=== PATIENT | female | born 1990 | race Caucasian/White ===

== ENCOUNTER 2016-11-06 21:46 | Emergency (ER) | payer OTHER ==
--- NOTE | 2016-11-06 22:18 | ER Document Report ---
ED GI/ - General Chief Complaint: Vag Bleeding, +preg <12wks Stated Complaint: VAGINAL BLEEDING Time Seen by Provider: 11/06/16 22:10 Notes: Patient is a 26-year-old female, at 6 weeks gestation by last menstrual period, that comes emergency department for chief complaint of vaginal bleeding and lower abdominal cramping that started this afternoon. She states she has passed a few clots. She denies vaginal discharge, dysuria, fever, vomiting, or current pain. She denies trauma. TRAVEL OUTSIDE OF THE [place] IN LAST 30 DAYS: No - Related Data Allergies/Adverse Reactions: No Known Allergies Allergy (Verified 03/21/13 19:14) Past Medical History - General Information source: Patient - Social History Smoking Status: Never Smoker Frequency of alcohol use: None Drug Abuse: None Lives with: Family Family History: Reviewed & Not Pertinent Patient has suicidal ideation: No Patient has homicidal ideation: No - Medical History Medical History: Negative Renal/ Medical History: Denies: Hx Peritoneal Dialysis Past Surgical History: Reports: Hx Oral Surgery - Immunizations Hx Diphtheria, Pertussis, Tetanus Vaccination: Yes - 2 years ago Review of Systems - Review of Systems Constitutional: No symptoms reported EENT: No symptoms reported Cardiovascular: No symptoms reported Respiratory: No symptoms reported Gastrointestinal: See HPI Genitourinary: See HPI Female Genitourinary: See HPI Musculoskeletal: No symptoms reported Skin: No symptoms reported Hematologic/Lymphatic: No symptoms reported Neurological/Psychological: No symptoms reported Physical Exam - Vital signs Vitals: Temp Pulse Resp BP Pulse Ox 97.7 F 89 20 144/88 H 100 11/06/16 21:50 11/06/16 21:50 11/06/16 21:50 11/06/16 21:50 11/06/16 21:50 Interpretation: Normal - General General appearance: Appears well, Alert In distress: None - HEENT Head: Normocephalic, Atraumatic Eyes: Normal Pupils: PERRL - Respiratory Respiratory status: No respiratory distress Chest status: Nontender Breath sounds: Normal Chest palpation: Normal - Cardiovascular Rhythm: Regular Heart sounds: Normal auscultation Murmur: No - Abdominal Inspection: Normal Distension: No distension Bowel sounds: Normal Tenderness: Nontender. No: Tender, Guarding Organomegaly: No organomegaly - Back Back: Normal, Nontender. No: Tender, CVA tenderness - Extremities General upper extremity: Normal inspection, Nontender, Normal color, Normal ROM , Normal temperature General lower extremity: Normal inspection, Nontender, Normal color, Normal ROM , Normal temperature, Normal weight bearing. No: J Carlos's sign - Neurological Neuro grossly intact: Yes Cognition: Normal Orientation: AAOx4 Nick Coma Scale Eye Opening: Spontaneous [place] Coma Scale Verbal: Oriented Nick Coma Scale Motor: Obeys Commands [place] Coma Scale Total: 15 Speech: Normal Motor strength normal: LUE, RUE, LLE, RLE Sensory: Normal - Psychological Associated symptoms: Normal affect, Normal mood - Skin Skin Temperature: Warm Skin Moisture: Dry Skin Color: Normal Course - Re-evaluation Re-evalutation: Patient well appearing, has a soft unremarkable abdomen, no CVA tenderness. No fever or tachycardia. Non-specific leukocytosis. Patient already aware of microcytic anemia. Chemistry unremarkable. Ultrasound shows no IUP, no abnormalities. HCG resulted as early or low. Urine contaminated, but with early after discussion with patient she will be covered for this. Discussed results and recommendations in details with patient. She has OBGYN she plans to follow up with closely reportedly. Discussed return precautions, patient states understanding and agreement. - Vital Signs Vital signs: Temp Pulse Resp BP Pulse Ox 98.2 F 89 17 113/76 98 11/07/16 01:14 11/07/16 01:14 11/07/16 01:14 11/07/16 01:14 11/07/16 01:14 - Laboratory Result Diagrams: 11/06/16 21:57 11/06/16 21:57 Laboratory results interpreted by me: 11/06/16 11/06/16 11/06/16 21:57 21:57 21:57 WBC 14.6 H Hgb 10.9 L Hct 34.9 L MCV 76 L MCH 23.7 L MCHC 31.1 L RDW 18.3 H Eosinophils % 6.6 H Absolute Neutrophils 9.1 H Absolute Eosinophils 1.0 H Beta HCG, Quant 124.54 H Urine Protein 30 H Urine Blood LARGE H Ur Leukocyte Esterase MODERATE H Discharge - Discharge Clinical Impression: Vaginal bleeding in patient at less than 20 weeks gestation Condition: Stable Disposition: HOME, SELF-CARE Additional Instructions: The ultrasound does not show any abnormalities, although does not show a yet, it is too early. It is unclear at this time if you are having an early with bleeding, a miscarriage, or other abnormality. This needs to be followed closely, I recommend a repeat beta hCG in 48-72 hours to help assess the situation. Take keflex antibiotic due to white blood cells in the urine and possible UTI. Return to emergency department for any concerning or worsening symptoms including heavy bleeding with severe pain, dizziness, or any other concerning symptoms. Prescriptions: Cephalexin Monohydrate [Keflex 500 mg Capsule] 500 mg PO BID #10 capsule Referrals: DUY MULLEN MD [Primary Care Provider] - Follow up as needed
[2016-11-06 22:21] LABS: ABSOLUTE BASOPHILS # (AUTO) 0.1 10^3/uL (0.0-0.2); ABSOLUTE LYMPHOCYTES (AUTO) 3.3 10^3/uL (0.5-4.7); ABSOLUTE MONOCYTES (AUTO) 1.1 10^3/uL (0.1-1.4); ABSOLUTE NEUT (AUTO) 9.1 10^3/uL (1.7-8.2); BASOPHILS % (AUTO) 0.8 % (0-2); EOSINOPHILS % (AUTO) 6.6 % (0-6); HEMATOCRIT 34.9 % (36.0-47.0); HEMOGLOBIN 10.9 g/dL (12.0-15.5); HGB HCT DIFFERENCE -2.2; LYMPHOCYTES % (AUTO) 22.7 % (13-45); MEAN CORPUSCULAR HEMOGLOBIN 23.7 pg (27.0-33.4); MEAN CORPUSCULAR HGB CONC 31.1 g/dL (32.0-36.0); MEAN CORPUSCULAR VOLUME 76 fl (80-97); MONOCYTES % (AUTO) 7.6 % (3-13); RED CELL DISTRIBUTION WIDTH 18.3 % (11.5-14.0); SEGMENTED NEUTROPHILS % (AUTO) 62.3 % (42-78); WHITE BLOOD COUNT 14.6 10^3/uL (4.0-10.5)
[2016-11-06 22:25] LABS: ALANINE AMINOTRANSFERASE 38 U/L (9-52); ALBUMIN 4.1 g/dL (3.5-5.0); ALKALINE PHOSPHATASE 100 U/L (38-126); ANION GAP 10 (5-19); ASPARTATE AMINO TRANSFERASE 26 U/L (14-36); BILIRUBIN,DIRECT 0.3 mg/dL (0.0-0.4); BILIRUBIN,TOTAL 0.4 mg/dL (0.2-1.3); BLOOD UREA NITROGEN 8 mg/dL (7-20); CALCIUM 9.3 mg/dL (8.4-10.2); CARBON DIOXIDE 26 mmol/L (22-30); CHLORIDE 104 mmol/L (98-107); GLUCOSE 98 mg/dL (75-110); POTASSIUM 4.3 mmol/L (3.6-5.0); SODIUM 140.1 mmol/L (137-145); TOTAL PROTEIN 7.6 g/dL (6.3-8.2)
[2016-11-06 22:29] LABS: BILIRUBIN,URINE NEGATIVE (NEGATIVE); GLUCOSE, URINE NEGATIVE (NEGATIVE); KETONES,URINE NEGATIVE (NEGATIVE); LEUKOCYTE ESTERASE,URINE MODERATE (NEGATIVE); NITRITE,URINE NEGATIVE (NEGATIVE); PROTEIN,URINE 30 mg/dL (NEGATIVE); URINE SPECIFIC GRAVITY 1.018; UROBILINOGEN,URINE NEGATIVE mg/dL (<2.0)
[2016-11-06 22:30] LABS: APPEARANCE,URINE SLIGHTLY-CLOUDY
--- NOTE | 2016-11-06 23:29 | RADIOLOGY REPORT (SQ) ---
EXAM DESCRIPTION: U/S OB TRANSVAG W/DOPPLER COMPLETED DATE/TIME: 11/06/2016 11:20 pm REASON FOR STUDY: +HCG, bleeding, cramping COMPARISON: None. TECHNIQUE: Transvaginal static and realtime grayscale images acquired of the pelvis. Additional keith cted spectral and color Doppler images recorded. All images stored on PACs. BHC LIMITATIONS: None. FINDINGS: UTERUS: No visualized intrauterine . RIGHT ADNEXA: Normal ovary with normal vascular flow. No adnexal free fluid. No adnexal masses. LEFT ADNEXA: Normal ovary with normal vascular flow. No adnexal free fluid. No adnexal masses. FREE FLUID: None. OTHER: No other significant finding. IMPRESSION: NO VISUALIZED INTRA- OR EXTRAUTERINE . bHCG LEVEL TOO LOW TO EXPECT VISUALIZATION OF . ECTOPIC CANNOT BE EXCLUDED. FOLLOW-UP ULTRASOUND AND SERIAL BHCG LEVELS STRONGLY RECOMMENDED TO ACCURATELY ASSESS STATU S. TECHNICAL DOCUMENTATION: JOB ID: [id number] [employer]- All Rights Reserved
[2016-11-07] MEDS ORDERED: CEPHALEXIN 500 MG CAPSULE PO ONE (00:52)
[2016-11-07 01:15] VITALS: BP 113/76
== END 2016-11-07 01:10 | disposition home or self-care (01) ==
LOC: ER 21:46
DX: O20.9 Hemorrhage in early pregnancy, unspecified (principal); O26.891 Other specified pregnancy related conditions, first trimester; R10.30 Lower abdominal pain, unspecified; O99.011 Anemia complicating pregnancy, first trimester; D50.9 Iron deficiency anemia, unspecified; O99.111 Other diseases of the blood and blood-forming organs and certain disorders involving the immune mechanism complicating pregnancy, first trimester; D72.829 Elevated white blood cell count, unspecified; Z3A.01 Less than 8 weeks gestation of pregnancy
CPT/HCPCS: 36415; 76817; 80053; 81001; 84702; 85025; 86900; 86901; 93976; 99284

== ENCOUNTER 2018-10-18 00:02 | Day surgery (SDC) | payer OTHER ==
[2018-10-18] MEDS ORDERED: ONDANSETRON HCL INJ/PF 4 MG/2 ML SDV IV ONE (00:25)
[2018-10-18] MEDS ORDERED: NORMAL SALINE 1000 ML 1,000 ML IV ONE ×2 (00:25→02:56)
--- NOTE | 2018-10-18 00:26 | ER Document Report ---
ED Medical Screen (RME) - General Chief Complaint: Upper Abdominal Pain Stated Complaint: CHEST PAIN,SHORTNESS OF BREATH Time Seen by Provider: 10/18/18 00:24 Primary Care Provider: DUY MULLEN MD [Primary Care Provider] - Follow up as needed Notes: Patient is a 20-year-old female presents to the emergency department generalized epigastric and right upper quadrant pain. Patient states she is also had multi ple episodes of vomiting. Patient's denying any blood in her emesis. Patient's denying any diarrhea, fevers, dysuria, vaginal discharge. Patient states she had the same pain when she was . States she was told it may be her gallbladder but unfortunately "there was nothing they could do because I was ." Past medical history: None Medications: None Allergies: None Patient states she just finished her last menstrual cycle yesterday. ABDOMEN: Soft, generalized right upper quadrant and epigastric abdominal pain. Non-distended. Bowel sounds present in all 4 quadrants. I have greeted and performed a rapid initial assessment of this patient. A comprehensive ED assessment and evaluation of the patient, analysis of test results and completion of the medical decision making process will be conducted by additional ED providers. I have specifically instructed the patient or family members with the patient to immediately return to any nursing staff should anything change in the patient's condition or with their chief complaint. This medical record was dictated with voice recognizing software. There may be grammatical, syntax errors that are unintended. TRAVEL OUTSIDE OF THE [place] IN LAST 30 DAYS: No - Related Data Allergies/Adverse Reactions: No Known Allergies Allergy (Verified 03/21/13 19:14) Past Medical History Renal/ Medical History: Denies: Hx Peritoneal Dialysis Past Surgical History: Reports: Hx Oral Surgery - Immunizations Hx Diphtheria, Pertussis, Tetanus Vaccination: Yes - 2 years ago Physical Exam - Vital signs Vitals: Temp Pulse Resp BP Pulse Ox 97.6 F 81 18 115/79 96 10/18/18 00:17 10/18/18 00:17 10/18/18 00:17 10/18/18 00:17 10/18/18 00:17 Course - Vital Signs Vital signs: Temp Pulse Resp BP Pulse Ox 97.6 F 81 18 115/79 96 10/18/18 00:17 10/18/18 00:17 10/18/18 00:17 10/18/18 00:17 10/18/18 00:17 Doctor's Discharge - Discharge Referrals: DUY MULLEN MD [Primary Care Provider] - Follow up as needed
[2018-10-18 00:57] LABS: APPEARANCE,URINE SLIGHTLY-CLOUDY; BILIRUBIN,URINE NEGATIVE (NEGATIVE); COLOR,URINE YELLOW; GLUCOSE, URINE NEGATIVE (NEGATIVE); KETONES,URINE NEGATIVE (NEGATIVE); LEUKOCYTE ESTERASE,URINE TRACE (NEGATIVE); NITRITE,URINE NEGATIVE (NEGATIVE); PROTEIN,URINE NEGATIVE (NEGATIVE); URINE SPECIFIC GRAVITY 1.024
[2018-10-18] MEDS ORDERED: HYDROMORPHONE HCL INJ/PF 2 MG/ML AMPULE IV ONE ×2 (00:57→02:55)
[2018-10-18 01:19] LABS: ABSOLUTE BASOPHILS # (AUTO) 0.1 10^3/uL (0.0-0.2); ABSOLUTE EOSINOPHILS # (AUTO) 0.7 10^3/uL (0.0-0.6); ABSOLUTE LYMPHOCYTES (AUTO) 2.2 10^3/uL (0.5-4.7); ABSOLUTE MONOCYTES (AUTO) 0.9 10^3/uL (0.1-1.4); ABSOLUTE NEUT (AUTO) 13.9 10^3/uL (1.7-8.2); BASOPHILS % (AUTO) 0.3 % (0-2); HEMATOCRIT 42.6 % (36.0-47.0); HEMOGLOBIN 14.6 g/dL (12.0-15.5); LYMPHOCYTES % (AUTO) 12.4 % (13-45); MEAN CORPUSCULAR HEMOGLOBIN 30.2 pg (27.0-33.4); MEAN CORPUSCULAR HGB CONC 34.2 g/dL (32.0-36.0); MEAN CORPUSCULAR VOLUME 88 fl (80-97); MONOCYTES % (AUTO) 5.2 % (3-13); PLATELET COUNT 277 10^3/uL (150-450); RED BLOOD COUNT 4.83 10^6/uL (3.72-5.28); RED CELL DISTRIBUTION WIDTH 14.9 % (11.5-14.0); SEGMENTED NEUTROPHILS % (AUTO) 78.1 % (42-78); TOTAL CELLS COUNTED % (AUTO) 100 %; WHITE BLOOD COUNT 17.8 10^3/uL (4.0-10.5)
[2018-10-18 01:40] LABS: ALANINE AMINOTRANSFERASE 48 U/L (9-52); ALBUMIN 4.2 g/dL (3.5-5.0); ALKALINE PHOSPHATASE 127 U/L (38-126); ANION GAP 13 (5-19); ASPARTATE AMINO TRANSFERASE 46 U/L (14-36); BILIRUBIN,DIRECT 0.3 mg/dL (0.0-0.4); BILIRUBIN,TOTAL 0.3 mg/dL (0.2-1.3); BLOOD UREA NITROGEN 12 mg/dL (7-20); CALCIUM 9.4 mg/dL (8.4-10.2); CARBON DIOXIDE 25 mmol/L (22-30); CHLORIDE 104 mmol/L (98-107); GLUCOSE 131 mg/dL (75-110); POTASSIUM 4.1 mmol/L (3.6-5.0); TOTAL PROTEIN 6.9 g/dL (6.3-8.2)
--- NOTE | 2018-10-18 02:03 | ER Document Report ---
ED General - General Chief Complaint: Upper Abdominal Pain Stated Complaint: CHEST PAIN,SHORTNESS OF BREATH Time Seen by Provider: 10/18/18 00:24 Primary Care Provider: DUY MULLEN MD [PEDIATRICS] - Follow up as needed Notes: Patient is a pleasant 20-year-old female who presents with complaint of right upper quadrant and epigastric abdominal pain. Started on 10:30 PM tonight. She last ate at 7 PM and had sloppy [employer] for dinner. No fevers. She had some vomiting. No diarrhea. She had similar symptoms approximately 12 weeks ago at the end of her . At that time she was told is probably her gallbladder but they want to wait to after her was over before doing surgery. She is now 8 weeks . TRAVEL OUTSIDE OF THE [place] IN LAST 30 DAYS: No - Related Data Allergies/Adverse Reactions: No Known Allergies Allergy (Verified 03/21/13 19:14) Past Medical History - Social History Smoking Status: Never Smoker Chew tobacco use (# tins/day): No Frequency of alcohol use: None Drug Abuse: None Family History: Reviewed & Not Pertinent Patient has suicidal ideation: No Patient has homicidal ideation: No Renal/ Medical History: Denies: Hx Peritoneal Dialysis Past Surgical History: Reports: Hx Oral Surgery - Immunizations Hx Diphtheria, Pertussis, Tetanus Vaccination: Yes - 2 years ago Review of Systems - Review of Systems Notes: My Normal Review Basic REVIEW OF SYSTEMS: CONSTITUTIONAL : Denies fever, chills, or sweats. Denies recent illness. CARDIOVASCULAR: Denies chest pain. RESPIRATORY: Denies cough, cold, or chest congestion. Denies shortness of breath, difficulty breathing, or wheezing. GASTROINTESTINAL: Right upper quadrant abdominal pain. Nausea vomiting. GENITOURINARY: Denies difficulty urinating, painful urination, burning, frequency, or blood in urine. FEMALE GENITOURINARY: Denies vaginal bleeding, abnormal or irregular periods. LMP: MUSCULOSKELETAL: Denies neck or back pain or joint pain or swelling. SKIN: Denies rash or skin lesions. NEUROLOGICAL: Denies altered mental status or loss of consciousness.. ALL OTHER SYSTEMS REVIEWED AND NEGATIVE. Physical Exam - Vital signs Vitals: Temp Pulse Resp BP Pulse Ox 97.6 F 81 18 115/79 96 10/18/18 00:17 10/18/18 00:17 10/18/18 00:17 10/18/18 00:17 10/18/18 00:17 - Notes Notes: General Appearance: Well nourished, alert, cooperative, no acute distress, moderate obvious discomfort. Vitals: reviewed, See vital signs table. Head: no swelling or tenderness to the head Eyes: PERRL, EOMI, Conjuctiva clear Mouth: No decreasd moisture Lungs: No wheezing, No rales, No rhonci, No accessory muscle use, good air excha nge bilaterally. Heart: Normal rate, Regular rythm, No murmur, no rub Abdomen: Normal BS, soft, No rigidity, Moderate upper abdominal pain to palpation, upper abdominal guarding, no rebound, no abdominal masses, no organomegaly Extremities: good pulses in all extremities, no swelling or tenderness in the extremities, no edema. Skin: warm, dry, appropriate color, no rash Neuro: speech clear, oriented x 3, normal affect, responds appropriately to questions. Course - Re-evaluation Re-evalutation: 10/18/18 03:17 On reevaluation patient pain is improving however still has some significant pain on palpation of the abdomen. I did order some more pain medicine. I did speak with Dr. Mckenzie, general surgeon, who agrees to come evaluate the patient. - Vital Signs Vital signs: Temp Pulse Resp BP Pulse Ox 97.6 F 81 15 106/80 97 10/18/18 00:17 10/18/18 00:17 10/18/18 03:01 10/18/18 03:01 10/18/18 03:01 - Laboratory Result Diagrams: 10/18/18 00:50 10/18/18 00:50 Laboratory results interpreted by me: 10/18/18 10/18/18 10/18/18 00:33 00:50 00:50 WBC 17.8 H RDW 14.9 H Seg Neutrophils % 78.1 H Lymphocytes % 12.4 L Absolute Neutrophils 13.9 H Absolute Eosinophils 0.7 H Glucose 131 H AST 46 H Alkaline Phosphatase 127 H Urine Blood SMALL H Urine Urobilinogen 2.0 H Ur Leukocyte Esterase TRACE H Discharge - Discharge Clinical Impression: Abdominal pain Qualifiers: Abdominal location: right upper quadrant Qualified Code(s): R10.11 - Right upper quadrant pain Cholelithiasis Qualifiers: Cholelithiasis location: gallbladder Cholecystitis presence: without cholecystitis Biliary obstruction: without biliary obstruction Qualified Code(s): K80.20 - Calculus of gallbladder without cholecystitis without obstruction Condition: Stable Disposition: ADMITTED INPATIENT Admitting Provider: Surgicalist Unit Admitted: Surgical Floor Referrals: DUY MULLEN MD [PEDIATRICS] - Follow up as needed
--- NOTE | 2018-10-18 02:17 | RADIOLOGY REPORT (SQ) ---
EXAM DESCRIPTION: US ABDOMEN DOPPLER LIMITED COMPLETED DATE/TME: 10/18/2018 00:57 CLINICAL HISTORY: 28 years, Female, RUQ abdominal pain COMPARISON: None. TECHNIQUE: Limited right upper quadrant ultrasound LIMITATIONS: None. FINDINGS: The liver, pancreas, abdominal aorta, inferior vena cava, right kidney are unremarkable. Multiple gallstones, some of which appear in the gallbladder neck region. Negative sonographic Glasgow sign. No gallbladder wall thickening or pericholecystic fluid. CBD is dilated at 9.7 mm. No ascites.. IMPRESSION: Cholelithiasis. Dilatation of the CBD at 9.7 mm. Consider further assessment with dedicated MRCP or ERCP. Negative sonographic Glasgow sign. copyright 2010 [employer]- All Rights Reserved
[2018-10-18] MEDS ORDERED: ONDANSETRON 4 MG TAB.RAPDIS PO PRN (04:10)
[2018-10-18] MEDS ORDERED: NORMAL SALINE 1000 ML 1,000 ML IV PRN (04:10)
--- NOTE | 2018-10-18 04:10 | PDOC H&P ---
History of Present Illness Admission Date/PCP: JALEESA EVANGELISTA Patient complains of: Abdominal pain History of Present Illness: CHRISTINE WHITNEY is a 28 year old female presenting with epigastric and right upper quadrant abdominal pain that began tonight along with nausea and vomiting. No fever. No diarrhea. No jaundice. Patient had a prior episode of this pain when she was that resolved without intervention. She delivered her baby about 7 weeks ago. Patient denies any Ice-Tea urine nor acholic stools. 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 Social History Smoking Status: Never Smoker Frequency of Alcohol Use: None Hx Recreational Drug Use: No Family History Family History: Reviewed & Not Pertinent Parental Family History Reviewed: Yes Children Family History Reviewed: Yes Sibling(s) Family History Reviewed.: Yes Medication/Allergy Home Medications: Cephalexin Monohydrate [Keflex 500 mg Capsule] 500 mg PO BID #10 capsule 11/07/16 Allergies/Adverse Reactions: No Known Allergies Allergy (Verified 03/21/13 19:14) Review of Systems All systems: reviewed and no additional remarkable complaints except as stated Gastrointestinal: PRESENT: as per HPI Neurological: PRESENT: other - Headache Physical Exam Vital Signs: Temp Pulse Resp BP Pulse Ox 97.6 F 81 15 106/80 97 10/18/18 00:17 10/18/18 00:17 10/18/18 03:01 10/18/18 03:01 10/18/18 03:01 Intake & Output 10/16/18 10/17/18 10/18/18 06:59 06:59 06:59 Intake Total 1000 Balance 1000 Weight 75.5 kg General appearance: PRESENT: no acute distress, cooperative Eye exam: PRESENT: conjunctiva pink Neck exam: PRESENT: other - Supple with no masses no tenderness Respiratory exam: PRESENT: chest wall tenderness Cardiovascular exam: PRESENT: RRR GI/Abdominal exam: PRESENT: other - Soft, nondistended, right upper quadrant abdominal tenderness without peritoneal signs. Neurological exam: PRESENT: alert, awake Psychiatric exam: PRESENT: appropriate affect Skin exam: PRESENT: warm Results Laboratory Results: 10/18/18 00:50 10/18/18 00:50 10/18/18 10/18/18 10/18/18 00:33 00:50 00:50 WBC 17.8 H RBC 4.83 Hgb 14.6 Hct 42.6 MCV 88 MCH 30.2 MCHC 34.2 RDW 14.9 H Plt Count 277 Seg Neutrophils % 78.1 H Lymphocytes % 12.4 L Monocytes % 5.2 Eosinophils % 4.0 Basophils % 0.3 Absolute Neutrophils 13.9 H Absolute Lymphocytes 2.2 Absolute Monocytes 0.9 Absolute Eosinophils 0.7 H Absolute Basophils 0.1 Sodium 142.1 Potassium 4.1 Chloride 104 Carbon Dioxide 25 Anion Gap 13 BUN 12 Creatinine 0.79 Est GFR ( Amer) > 60 Est GFR (Non-Af Amer) > 60 Glucose 131 H Calcium 9.4 Total Bilirubin 0.3 AST 46 H ALT 48 Alkaline Phosphatase 127 H Total Protein 6.9 Albumin 4.2 Lipase 53.1 Urine Color YELLOW Urine Appearance SLIGHTLY-CLOUDY Urine pH 7.0 Ur Specific [place] 1.024 Urine Protein NEGATIVE Urine Glucose (UA) NEGATIVE Urine Ketones NEGATIVE Urine Blood SMALL H Urine Nitrite NEGATIVE Ur Leukocyte Esterase TRACE H Urine WBC (Auto) 5 Urine RBC (Auto) 2 Impressions: Abdomen Ultrasound 10/18/18 00:57 IMPRESSION: Cholelithiasis. Dilatation of the CBD at 9.7 mm. Consider further assessment with dedicated MRCP or ERCP. Negative sonographic Glasgow sign. copyright 2010 [employer]- All Rights Reserved Assessment & Plan - Diagnosis (1) Cholelithiasis Qualifiers: Cholelithiasis location: gallbladder Cholecystitis presence: with cholecystitis Biliary obstruction: without biliary obstruction Qualified Code(s): K80.20 - Calculus of gallbladder without cholecystitis without obstruction Is this a current diagnosis for this admission?: Yes Plan: Patient with likely acute cholecystitis based upon her tenderness and persistence of symptoms. Her common bile ducts are dilated although her liver enzymes are minimally abnormal. Patient would benefit from a laparoscopic cholecystectomy and intraoperative cholangiogram. If she demonstrates a common bile duct stones by intraoperative cholangiography, patient will need an ERCP postoperatively. I have discussed with the patient the risk and benefits of the laparoscopic cholecystectomy, possible open cholecystectomy. She understands risk of adjacent structure injury such as bile duct or intestinal injury, bleeding, infection, post cholecystectomy diarrhea, possibility of a large incision, and possible need for additional procedures such as an ERCP postoperatively. Patient understands and agrees to proceed. I will admit the patient in this late hour and will discuss with the oncoming surgeon about having her surgery done. Patient understands that the surgery will be done by the oncoming surgeon.
[2018-10-18] MEDS ORDERED: AMPICILLIN SOD/SULBACTAM 3 GM VIAL ONE (05:43)
[2018-10-18] MEDS: HYDROMORPHONE HCL INJ/PF 2 MG/ML AMPULE IV PRN ×2 (05:55→08:15)
[2018-10-18] MEDS ORDERED: AMPICILLIN SODIUM/SULBACTAM NA 3 GM in NORMAL SALINE 100 ML IV SCH ×3 (06:00→14:00)
[2018-10-18] MEDS ORDERED: BUPIVACAINE HCL 0.25% /EPINEPHRINE INJ/PF 30 ML SDV ONE (11:05)
[2018-10-18] MEDS ORDERED: PROPOFOL INJ 200 MG/20 ML VIAL IV ONE (11:12)
[2018-10-18] MEDS ORDERED: MIDAZOLAM 2 MG/2 ML INJ ONE (11:12)
[2018-10-18] MEDS ORDERED: FENTANYL CITRATE INJ/PF 250 MCG/5 ML AMPULE ONE (11:12)
[2018-10-18] MEDS ORDERED: PROMETHAZINE HCL INJ 25 MG/1 ML VIAL IV PRN ×2 (11:46)
[2018-10-18] MEDS ORDERED: DIPHENHYDRAMINE HCL 50 MG/ML VIAL IV PRN (11:46)
[2018-10-18] MEDS ORDERED: MORPHINE SULFATE 10 MG/ML INJ IV PRN (11:46)
[2018-10-18] MEDS ORDERED: FENTANYL CITRATE INJ/PF 100 MCG/2 ML AMPUL IV PRN ×3 (11:46)
[2018-10-18] MEDS ORDERED: MEPERIDINE HCL/PF INJ 25 MG/1 ML DISP.SYRIN IV PRN (11:46)
[2018-10-18] MEDS ORDERED: OXYCODONE-ACETAMINOPHEN 5-325 MG TABLET PO PRN ×2 (11:46)
[2018-10-18] MEDS ORDERED: LIDOCAINE 2% INJ-PF (20 MG/ML) 2 ML AMPUL ONE (12:10)
[2018-10-18] MEDS ORDERED: ONDANSETRON HCL INJ/PF 4 MG/2 ML SDV ONE ×2 (12:10→14:13)
[2018-10-18] MEDS ORDERED: KETOROLAC TROMETHAMINE 60 MG/2 ML SDV ONE (12:10)
[2018-10-18] MEDS ORDERED: NEOSTIGMINE METHYLSULFATE 10 MG/10 ML VIAL ONE (12:10)
[2018-10-18] MEDS ORDERED: ROCURONIUM BROMIDE INJ 50 MG/5 ML VIAL IV ONE (12:10)
[2018-10-18] MEDS ORDERED: DEXAMETHASONE SOD PHOSPHATE INJ 4 MG/1 ML VIAL ONE (12:10)
[2018-10-18] MEDS ORDERED: GLYCOPYRROLATE 1 MG/5 ML VIAL ONE (12:10)
[2018-10-18] MEDS: FENTANYL CITRATE INJ/PF 100 MCG/2 ML AMPUL ONE ×3 (13:35→13:45)
--- NOTE | 2018-10-18 13:39 | OPERATIVE REPORT E ---
Operative Report NAME: CHRISTINE WHITNEY : 1990 AGE: 28Y DATE OF SURGERY: 10/18/2018 ROOM: 207 PREOPERATIVE DIAGNOSIS: CHOLELITHIASIS, ACUTE CHOLECYSTITIS. POSTOPERATIVE DIAGNOSIS: CHOLELITHIASIS, ACUTE CHOLECYSTITIS. OPERATION: LAPAROSCOPIC CHOLECYSTECTOMY, INTRAOPERATIVE CHOLANGIOGRAM. SURGEON: CHRIS WOODS M.D. ANESTHESIA: General. INDICATION: This is a 28-year-old female, about 7 weeks , complaining of right upper quadrant pains, and ultrasound revealed a stone in the gallbladder. Her liver function tests are slightly elevated, and the ultrasound showed slightly dilated common bile duct. PROCEDURE: After adequate general anesthesia, the patient was placed in supine position and the abdomen prepped and draped in the usual sterile fashion. Appropriate timeout was then called. Next, an infraumbilical incision was made and the fascia identified, divided, and Vangie trocar inserted through the fascia to the abdominal cavity. CO2 insufflated. Three other trocars were placed, 12 mm in the subxiphoid and two 5 mm in the right upper quadrant under direct vision. Next, the gallbladder was then identified and noted to be somewhat distended and slightly thickened wall. I was able to grasp the gallbladder. The tip of the gallbladder was grasped and pulled over the liver, and the infundibulum also grasped and pulled out. The cystic duct was then dissected and noted to be just slightly dilated. The cystic artery was also identified and dissected. Next, a hemoclip was then placed on the gallbladder side of the cystic duct. The cystic duct proximally was then partially opened with scissors. Next, a [employer] cholangiocatheter was then inserted through the abdominal wall through an intercath. Cholangiocatheter was then placed through the cystic duct, and subsequently stapled to keep it in place. Next, the cholangiogram was then performed and noted to have no stones in the common duct, and also common duct without any obstruction. It appears to be just slightly dilated. Next, the cholangiocatheter was subsequently pulled up from the cystic duct after removal of the clip initially keeping it in place. The cystic duct again reclipped proximally three times. It was then divided between the distal clips. Cystic artery was also clipped and then divided with harmonic oleksandr toward the gallbladder side. The gallbladder was then removed from the liver bed with the aid of the harmonic oleksandr. The gallbladder was noted to be just slightly intrahepatic. The gallbladder was completely removed from the liver bed. The gallbladder was then placed in an Endobag and pulled out through the umbilical port. There was a 3 cm stone palpable in the gall bladder Vangie trocar reinserted through the umbilicus and the liver bed irrigated and no evidence of active bleeding noted. A small piece of Surgicel was then placed over the liver bed to make sure there is no further bleeding. All the trocars were removed and CO2 allowed to come out through the trocar sites. The fascial defect was then closed with a [id number] suture using 0 Vicryl and two stay sutures were tied over for better closure. All the skin incisions were then closed with running subcuticular 4-0 Vicryl undyed. Steri-Strips placed over the operative sites. Needle, instrument, and sponge count were all correct. Estimated blood loss was no more than 10 mL. The patient was brought to the recovery room, extubated and in satisfactory condition. DICTATING PHYSICIAN: CHRIS WOODS M.D. [id number] PHY#: [id number] ID: [id number] JOB#: [id number] ACCT: [id number] cc:CHRIS WOODS M.D. > MTDD
--- NOTE | 2018-10-18 13:39 | RADIOLOGY REPORT (SQ) ---
EXAM DESCRIPTION: CHOLANGIOGRAM OPERATIVE COMPLETED DATE/TIME: 10/18/2018 1:03 pm REASON FOR STUDY: CHOLANGIOGRAM IN OR COMPARISON: None. FLUOROSCOPY TIME: 1.0 minute. 4 images saved to PACS. TECHNIQUE: 4 images were obtained from an intraoperative cholangiogram. LIMITATIONS: None. FINDINGS: There is opacification of the bile ducts, cystic duct remnants and second portion of the d uodenum without evidence of fixed filling defect or significant extravasation. IMPRESSION: INTRAOPERATIVE CHOLANGIOGRAM. COMMENT: Quality ID [id number]: Final reports for procedures using fluoroscopy that document radiation exp osure indices, or exposure time and number of fluorographic images (if radiation exposure indices are not available) TECHNICAL DOCUMENTATION: JOB ID: [id number]- All Rights Reserved Reading location - IP/workstation name: [email or web address] CARLOS
[2018-10-18] MEDS ORDERED: HYDROMORPHONE HCL INJ/PF 2 MG/ML AMPULE IV PRN (14:00)
[2018-10-18] MEDS: OXYCODONE-ACETAMINOPHEN 5-325 MG TABLET PO PRN ×2 (16:37→21:37)
[2018-10-18] MEDS ORDERED: KETOROLAC TROMETHAMINE INJ/PF 30 MG/1 ML SDV IV SCH (18:00)
[2018-10-18 21:14] VITALS: BP 114/69
--- NOTE | 2018-10-18 22:24 | DISCHARGE SUMMARY E ---
Discharge Summary NAME: CHRISTINE WHITNEY : 1990 AGE: 28Y ADMITTED: 10/18/2018 DISCHARGED: 10/18/2018 FINAL DIAGNOSES: Acute and chronic cholecystitis, cholelithiasis. PROCEDURE: Laparoscopic cholecystectomy with intraoperative cholangiogram, 10/18/18, surgeon Dr. Abraham. HOSPITAL COURSE: This is a 28-year-old female about 7 weeks complaining of abdominal pains. Ultrasound showed a large stone in the gallbladder with slightly dilated common bile duct. Her LFTs were also just slightly elevated. She then underwent laparoscopic cholecystectomy with intraoperative cholangiogram that was normal on 10/18/18. Postoperatively she did very well and tolerated regular diet on the evening of surgery. She was then discharged on the evening of surgery 10/18/18. DISCHARGE INSTRUCTION: The patient to be followed in the surgical clinic in 2 weeks. She was advised not to do any lifting more than 10 to 15 pounds for the next 2 weeks. A prescription for Toradol was given. DICTATING PHYSICIAN: CHRIS ABRAHAM M.D. [id number] PHY#: [id number] ID: [id number] JOB#: [id number] ACCT: [id number] cc:CHRIS ABRAHAM M.D. >
== END 2018-10-18 22:01 | disposition home or self-care (01) ==
LOC: ER 00:02 → OROUT 04:12 → ER 04:12 → EH 04:14 → EEVIPCON 04:14 → UNDOADMIN 04:14 → 2N 05:35 → EH 05:35 → OROUT 22:01 → UNDODISIN 22:01
PROVIDERS: ATTEND Surgery
DX: K80.12 Calculus of gallbladder with acute and chronic cholecystitis without obstruction (principal)
CPT/HCPCS: 47563; 96376; 99285; 96361; 96374; 96375; 36415; 87040; 83690; 85025; 81025; 80053; 81001; 88304 ×2; 74300; 76705; 93976; 00790; Q9967; J2250; J3490 ×4; J1100; J1885 ×2; J3010 ×2; J0295; J2710; J1170; J2405; J7030; J2704; 790